=== PATIENT | female | born 1990 | race Caucasian/White ===

== ENCOUNTER 2018-07-10 13:24 | Inpatient (IN) | payer OTHER ==
[2018-07-10 14:17] VITALS: BMI 31.8
[2018-07-10] MEDS ORDERED: Lactated Ringer's 1,000 ML IV ONE (14:33)
[2018-07-10] MEDS: Lactated Ringer's 1,000 ML IV SCH (15:02)
--- NOTE | 2018-07-10 15:22 | OBADHP ---
Datetime: 07/10/2018 13:55 IP Chief Complaint Other: Vaginal spotting IP Admit Plan Other: Induction of labor Admit Comment, IP Provider: This is a private patient of Dr. Pollack 28 y.o. , LMP 10/02/17, JOVAN 07/09/18, EGA 40w 1d c/o decreased FM since 1900 hours, and up thro ugh this morning. (+) AFM; denies leakage of fluid. (+) vaginal spotting 2200 hours. (+) crampy LAP x 1 week, pain scale now 1/10. care: Dr. Pollack, Beta-thal minor; mild anemia. Patietn has b een followed by serial ultraosund for concern of possible IUGR versus SGA. P Ob: Primip P HEAVY CLEANER: 12 x monthly x 5-6. H/O ovarian cysts, age 15. Most recent Pap, earlier in - nega tive. No h/o myomata or STIs PMH: beta-thal minor PSH: 03/2018, right breast biopsy - benign fibroadenoma NKDA Meds: PNV and iron - each QD Soc Hx: denies tobacco, illicit drug, EtOH use. x 2 years. Works as [employer]. Fam Hx: Mother alive 57. Father alive 56 y.o., both, no med issues P.E.: as above. Small, in NAD. Awake, alert, oriented to time, person and place. Pleasant and care coordination manager perative. and her mother are present. Assessmdent: 28 y.o. P0, 40w 1d, decreased movement. Category 1 tracing. Beta-thal minor, m ild anemia - on iron. As per Dr. Pollack, admit for delivery - initiate process with cervical ripening . Patient expressed an understanding and agrees. Patient is clincially stable. Plan: 1) Admit 2) NPO 3) Admission labs 4) IVFs 5) Continuous EFM 6) Cervidil 7) Anticipate vaginal delivery - as per and D/W Dr. Ranjeet Pelvic Type - PN: Adequate Extremities - PN: Normal Abdomen - PN: Normal Back - PN: Normal Breast - PN: Not Done Lungs - PN: Normal Heart - PN: Normal Thyroid - PN: Not Done Neurologic - PN: Normal HEENT - PN: Normal General - PN: Normal Presentation-Admit: Vertex FHR - Baseline A Provider: 120 Contraction Comments Provider: none Comments, ACOG Physical Exam: Breasts: right:- healed 5 mm scar at 1 o'clock, no other lesions Abdomen: Gravid. Soft. Non tender. Fundal height 39.5cm Extremities: no calf tenderness All other systems reviewed and are negative Gestation - Est Wks by US: 40w 1d IP Hx Assessment: The History has been Reviewed and is wnl Vital Signs Provider: Reviewed IP Chief Complaint: Decreased movement NICHD Variability Prov Fetus A: Moderate 6-25bpm NICHD Accel Fetus A IP Provider: 15X15 FHR Category Provider Fetus A: Category I NICHD Decel Fetus A IP Provider: None Dilatation, Provider: FT Effacement, Provider: 40 Station, Provider: -3 Genitourinary Exam: Normal DTRs - PN: Normal EGA AdmitDate IP: 40.1 IP Adm Impression: Postterm, intrauterine ; No Active Labor IP Admit Plan: Admit to unit
[2018-07-10 15:44] LABS: SQUAMOUS EPITHIAL 3 /hpf (0-5); URINE BACTERIA RARE (<OCC); URINE BILIRUBIN NEGATIVE (NEGATIVE); URINE BLOOD NEGATIVE (NEGATIVE); URINE CLARITY Clear (Clear); URINE COLOR Yellow (YELLOW); URINE GLUCOSE (UA) NORMAL (Normal); URINE LEUKOCYTE ESTERASE NEG Leu/uL (Negative); URINE PROTEIN NEGATIVE (NEGATIVE); URINE UROBILINOGEN NORMAL mg/dL (0.2-1.0)
[2018-07-10 15:46] LABS: BASO % 0.4 % (0.0-2.0); EOS % 0.4 % (0.0-4.0); HEMOGLOBIN 11.6 g/dL (11.0-16.0); LYMPH # 1.6 K/uL (1.0-4.3); LYMPH % 12.6 % (20.0-40.0); MEAN CORPUSCULAR HGB CONC 32.8 g/dL (33.0-37.0); MONO # 1.1 K/uL (0.0-0.8); MONO % 9.2 % (0.0-10.0); NEUT # 9.6 K/uL (1.8-7.0); NEUT % 77.4 % (50.0-75.0); NRBC % 0.1 % (0.0-2.0); RBC 5.27 Mil/uL (3.80-5.20); WHITE BLOOD COUNT 12.4 K/uL (4.8-10.8)
[2018-07-10 15:51] LABS: ALB/GLOB RATIO 1.5 (1.0-2.1); ALBUMIN 3.9 g/dL (3.5-5.0); ALT/SGPT 20 U/L (9-52); AST/SGOT 20 U/L (14-36); BLOOD UREA NITROGEN 9 mg/dL (7-17); CALCIUM 9.2 mg/dl (8.6-10.4); GFR NON-AFRICAN AMERICAN > 60
--- NOTE | 2018-07-10 23:04 | OBPN ---
Datetime: 07/10/2018 22:05 Membranes, Provider: Intact Contraction Comments Provider: irregular FHR - Baseline A Provider: 110 Gestation - Est Wks by US: 40w 1d IP Progress Note Comment: Cervidil removed from posterior vaginal vault at the request of Dr. Pollack A/P: 28 y.o. P0, 40w 1d, IOL for decreased FM. Category 1 tracing. 1) Cytotec 50 micrograms bucally Q 4 hours x 2 doses 2) Anticipate vaginal delivery - as per Dr. Pollack Vital Signs Provider: Reviewed; Within Normal Limits NICHD Accel Fetus A IP Provider: 15X15 FHR Category Provider Fetus A: Category I NICHD Variability Prov Fetus A: Moderate 6-25bpm Dilatation, Provider: 1-2 Effacement, Provider: 30 Station, Provider: -3 NICHD Decel Fetus A IP Provider: None Datetime: 07/10/2018 15:36 Presentation-Admit: Vertex
[2018-07-11] MEDS: Lactated Ringer's 1,000 ML IV SCH (00:10)
[2018-07-11] MEDS ORDERED: Oxytocin 30 UNIT 30 UNITS/500 ML BAG IV ONE ×2 (05:58→06:30)
[2018-07-11] MEDS ORDERED: cefOXitin IV 2 gm in Dextrose 2 GM/50 ML BAG IVPB ONE (07:20)
[2018-07-11] MEDS ORDERED: Oxytocin 20 units in LR 2,000 ML IV ONE (07:24)
[2018-07-11] MEDS ORDERED: cefOXitin IV 2 gm in Saline 2 GM/50 ML BAG IVPB ONE (07:24)
[2018-07-11] MEDS ORDERED: Sodium Citrate/Citric Acid 15 ml Sol ONE (07:24)
[2018-07-11] MEDS ORDERED: Oxytocin 10 Units/ml Inj ONE (07:45)
[2018-07-11] MEDS ORDERED: Oxycodone/Acetaminophen 5/325 mg Tab PO PRN ×2 (08:40)
--- NOTE | 2018-07-11 08:53 | OBDS ---
DELIVERY PERSONNEL Delivery Doctor: Bello Pollack MD Scrub Nurse: Yvonne Dobbins Field Service Tech: Stacia Jean RN Anesthesiologist: PAN MATERNAL INFORMATION Delivery Anesthesia: Spinal Medications in Delivery: PITOCIN 20 Placenta Cultured: Yes Maternal Complications: Other Other Maternal Complications: DECEL RN Comments: LIVING BABY BOY APG 05-04 Provider Comments: dr pollack baby deliverd in [place]. no cord. placente deliverd manually. endmetrium jhon no com LABOR SUMMARY EDC: 07/09/2018 00:00 LABOR INFORMATION Cervical Ripening Agents: Cytotec @ (Annotations: 50 mcg PO) Group B Beta Strep: Negative STAGES OF LABOR Stage 3 hrs: 0 Stage 3 min: 1 BABY A INFORMATION Delivery Date/Time: 07/11/2018 07:38 Method of Delivery: Born in Route : No : N/A Forceps: N/A Vacuum Extraction: N/A Shoulder Dystocia : No SHOULDER DYSTOCIA BABY A Delivery Date/Time: 07/11/2018 07:38 PRESENTATION/POSITION BABY A Presentation: Cephalic Cephalic Presentation: Vertex Vertex Position: Left Occipital Anterior Breech Presentation: N/A PLACENTA INFORMATION BABY A Placenta Delivery Time : 07/11/2018 07:39 Placenta Method of Delivery: Expressed Placenta Status: Delivered SCORES BABY A Heart Rate 1 min: >100 bpm Resp Effort 1 min: Good Cry Reflex Irritability 1 min: Cough or Sneeze or Pulls Away Muscle Tone 1 min: Active Motion Color 1 min: Body Spencer, Extremities Blue Resuscitation Effort 1 min: Tactile Stimulation SCORE 1 MIN: 9 Heart Rate 5 min: >100 bpm Resp Effort 5 min: Good Cry Reflex Irritability 5 min: Cough or Sneeze or Pulls Away Muscle Tone 5 min: Active Motion Color 5 min: Body Spencer, Extremities Blue SCORE 5 MIN: 9 INFANT INFORMATION BABY A Gestational Age at Delivery: 40.0 Gestational Status: Term Outcome : Liveborn Infant Condition : Stable Infant Sex: Male IDENTIFICATION/MEDS BABY A ID Band Number: [id number] ID Band Location: Left Leg; Left Arm Sensor Applied: Yes Sensor Number: [id number] Sensor Location : Cord Clamp WEIGHT/LENGTH BABY A Infant Birthweight (gms): 2855 Weight (lb): 6 Infant Weight (oz): 5 Infant Length Inches: 18.50 Infant Length cms: 47.0 CORD INFORMATION BABY A No. Cord Vessels: 3 Nuchal Cord : N/A Cord Blood Taken: Yes Infant Suction: Mouth; Nose ASSESSMENT BABY A Infant Complications: None Physical Findings at Delivery: Within Normal Limits Respirations: Appears Normal Online Marketing Specialist/ALS Called : No Care By: LAMONT Transferred To: Remains with Mother
--- NOTE | 2018-07-11 08:53 | OBADHP ---
Datetime: 07/10/2018 22:05 FHR - Baseline A Provider: 110 Membranes, Provider: Intact Contraction Comments Provider: irregular Gestation - Est Wks by US: 40w 1d IP Hx Assessment: The History has been Reviewed and is Current Vital Signs Provider: Reviewed; Within Normal Limits NICHD Variability Prov Fetus A: Moderate 6-25bpm NICHD Accel Fetus A IP Provider: 15X15 FHR Category Provider Fetus A: Category I NICHD Decel Fetus A IP Provider: None Dilatation, Provider: 1-2 Effacement, Provider: 30 Station, Provider: -3 Datetime: 07/10/2018 15:36 Presentation-Admit: Vertex Datetime: 07/10/2018 13:55 EGA AdmitDate IP: 40.1
[2018-07-11] MEDS ORDERED: Morphine Monoject Barrel PCA 1mg/ml IV PRN (08:54)
[2018-07-11] MEDS ORDERED: Acetaminophen IV 1,000 MG in Premixed IV 1 EA IV ONE (08:56)
[2018-07-11] MEDS ORDERED: HYDROmorphone 0.5 mg/0.5 ml ISec IVP PRN (09:09)
[2018-07-11] MEDS ORDERED: Morphine 1 mg/ml preservative-free Inj(Duramorph) ONE (09:22)
[2018-07-11] MEDS ORDERED: Propofol 10 mg/ml Inj (20 ML) ONE (09:23)
[2018-07-11] MEDS ORDERED: Sodium Citrate/Citric Acid 15 ml Sol PO ONE (10:15)
[2018-07-11] MEDS ORDERED: HYDROmorphone 0.2 mg/ml PCA 6 MG/30 ML SOL IV ONE (10:20)
[2018-07-11] MEDS ORDERED: Phenylephrine 10 mg/ml Inj ONE (12:08)
[2018-07-11] MEDS ORDERED: Neostigmine Methylsulfate 3mg/3ml Syringe IV ONE (12:08)
[2018-07-12] MEDS: Lactated Ringer's 1,000 ML IV SCH (07:08)
[2018-07-12 09:00] VITALS: RESP 18
[2018-07-12] MEDS: Simethicone 80 mg Chewtab PO SCH ×4 (09:03→22:20)
[2018-07-12] MEDS: Prenatal Multivit/Folic Acid/Iron Tab PO SCH (09:03)
[2018-07-12 09:16] LABS: MEAN CELL VOLUME 67.8 fL (81.0-99.0); MEAN CORPUSCULAR HEMOGLOBIN 22.1 pg (27.0-31.0); MEAN CORPUSCULAR HGB CONC 32.6 g/dL (33.0-37.0); MEAN PLATELET VOLUME 9.2 fL (7.2-11.7); RBC 4.14 Mil/uL (3.80-5.20); RED CELL DISTRIBUTION WIDTH 16.2 % (11.5-14.5); WHITE BLOOD COUNT 18.4 K/uL (4.8-10.8)
[2018-07-12 09:20] LABS: HEMOGLOBIN 9.1 g/dL (11.0-16.0)
--- NOTE | 2018-07-12 15:25 | OBPPN ---
Datetime: 07/12/2018 15:19 PP Nausea Prov: Denies PP Flatus Prov: No PP BM Prov: No PP Heart Prov: Normal PP Lungs Prov: Normal PP Abdomen/Uterus Prov: Normal PP Lochia Prov: Normal PP Vulva/Perineum Prov: Normal PP CVA Tenderness Prov: Normal PP Extremities Prov: Normal PP C/S Incision Prov: Normal PP Progress Prov: Normal PP Impression Prov: Normal progression PP Plan Prov: Continue present management; consult PP Progress Note Prov: PT DOING WELL. CURRENTLY NO COMPLAINTS AT THIS TIME. AMBULATING. TOLERATING P O DIET, DENIES NAUSEA OR VOMITNG. PE: ALERT ORIENTED X 3. INCISION: C/D/I EXT: NO EDEMA LABS: WBC 18 A/P S/P C/S POD#1 1) VSS; AFEBRILE 2) ENCOURAGED AMBULATION. 3) ELEVATED WBC: WILL REPEAT CBC IN THE AM. 4) BREAST FEEDING. S/P CONSULT. 5) ROUTINE POST OP CARE. IP PP Procedures: None Vital Signs Provider PP: Reviewed; Within Normal Limits Dr Signature: Jhon PATTERSON
--- NOTE | 2018-07-13 08:20 | OBPPN ---
Datetime: 07/13/2018 08:14 PP Pain Prov: Within normal limits PP Nausea Prov: Denies PP Flatus Prov: Yes PP BM Prov: No PP Breasts Prov: Normal PP Lungs Prov: Normal PP Lochia Prov: Normal PP Extremities Prov: Normal PP C/S Incision Prov: Normal PP Progress Prov: Normal PP Comments Phys Exam Prov: ABD: Soft, NT, Incision clean and dry PP Impression Prov: Normal progression PP Plan Prov: Continue present management PP Progress Note Prov: POD#2 Pt doing well. No complaints today. + Fl, No BM. Lochia moderate. ABD: Soft, NT, Uterus firm below umbilicus Extr: No calf tenderness A/P: 28 y/os/p C section. Doing well Encouraged ambulation F/U CBC today Pain management Stool softener Conrinue POD care IP PP Procedures: None
[2018-07-13 08:45] LABS: BASO # 0.1 K/uL (0.0-0.2); BASO % 0.4 % (0.0-2.0); EOS # 0.1 K/uL (0.0-0.7); EOS % 0.8 % (0.0-4.0); HEMOGLOBIN 8.6 g/dL (11.0-16.0); LYMPH # 1.5 K/uL (1.0-4.3); LYMPH % 11.1 % (20.0-40.0); MEAN CELL VOLUME 66.8 fL (81.0-99.0); MEAN CORPUSCULAR HEMOGLOBIN 22.1 pg (27.0-31.0); MEAN CORPUSCULAR HGB CONC 33.1 g/dL (33.0-37.0); MEAN PLATELET VOLUME 9.2 fL (7.2-11.7); MONO % 7.4 % (0.0-10.0); NEUT % 80.3 % (50.0-75.0); NRBC % 0.1 % (0.0-2.0); RBC 3.9 Mil/uL (3.80-5.20); RED CELL DISTRIBUTION WIDTH 16.3 % (11.5-14.5); WHITE BLOOD COUNT 13.7 K/uL (4.8-10.8)
[2018-07-13] MEDS: Prenatal Multivit/Folic Acid/Iron Tab PO SCH (10:15)
[2018-07-13] MEDS: Simethicone 80 mg Chewtab PO SCH ×4 (10:16→22:14)
--- NOTE | 2018-07-14 08:54 | NBPN ---
Datetime: 07/13/2018 08:49 Nsy Prov Gen Appearance: Within Normal Limits Nsy Prov Skin: Jaundice Nsy Prov Neuro: Normal Tone; Ani; Grasp; Root; Suck Nsy Prov Musculoskeletal: Within Normal Limits; Full Range of Motion; Spontaneous Movement All Extre mities; Intact Clavicles; Clavicles without Crepitus; Gluteal Folds Symmetrical; Spine Within Normal Limits; No Sacral Dimple/Cyst Nsy Prov Head: Normal Fontanelles; Normocephalic; Sutures WNL Nsy Prov EENT: Mouth Within Normal Limits; Ears Within Normal Limits; Eyes Within Normal Limits; Eye s Red Reflex Bilaterally; Nose Within Normal Limits; Face Within Normal Limits Nsy Prov Cardiovascular: Within Normal Limits; Normal Pulses Nsy Prov Respiratory: Within Normal Limits Nsy Prov GI: Within Normal Limits; Soft; Normal Liver; Non Palpable Spleen; Patent Anus Nsy Prov Umbilicus: Within Normal Limits; Three Vessel Cord Nsy Prov PE Comments: bili 10.7 mom a+ baby 0+ george neg Nsy Prov Impression: Healthy Term ; Vital Signs Appropriate; Bonding Appropriately; Voiding a nd Stooling Nsy Prov Plan: Continue Howard Care Nsy Prov Impression/Plan Details: well baby
[2018-07-14] MEDS ORDERED: Influenza Vaccine 60 MCG/0.5 ML SYR (3 yr & up) IM ONE (09:22)
[2018-07-14] MEDS: Prenatal Multivit/Folic Acid/Iron Tab PO SCH (09:23)
[2018-07-14] MEDS: Simethicone 80 mg Chewtab PO SCH ×2 (09:23→13:45)
[2018-07-14 09:36] VITALS: BP 108/73; PULSE 84; TEMP 97.3; O2SAT 98
== END 2018-07-14 17:45 | disposition home or self-care (01) | DRG 788 ==
LOC: C.EROB 13:24 → C.4D 13:56 → C.4M 07-11 14:00
PROVIDERS: ADMIT Obstetrics & Gynecology; ATTEND Obstetrics & Gynecology
PROC: 3E0P7VZ Introduction of Hormone into Female Reproductive, Via Natural or Artificial Opening (ICD-10-PCS; 2018-07-10)
PROC: 10D00Z1 Extraction of Products of Conception, Low, Open Approach (ICD-10-PCS; principal; 2018-07-11)
DX: O48.0 Post-term pregnancy (principal); O76 Abnormality in fetal heart rate and rhythm complicating labor and delivery; O36.8130 Decreased fetal movements, third trimester, not applicable or unspecified; O32.1XX0 Maternal care for breech presentation, not applicable or unspecified; O99.02 Anemia complicating childbirth; Z3A.40 40 weeks gestation of pregnancy; Z37.0 Single live birth